=== PATIENT | female | born 1985 | race Caucasian/White ===

== ENCOUNTER 2021-04-19 18:50 | Emergency (ER) | payer MEDICAID ==
[~2021-04-19] VITALS: Ht 157.5 cm; Wt 73.9 kg
[~2021-04-19 18:50] MED LIST: FERR-15 PO; IBUP-1842 PO
[2021-04-19 19:03] VITALS: BP 134/75
--- NOTE | 2021-04-19 19:13 | NUR ---
Pt ambulated to bed 07
--- NOTE | 2021-04-19 19:25 | NUR ---
KASIE BO AT BEDSIDE FOR MEDICAL EXAMINATION
[2021-04-19] MEDS ORDERED: NACL 0.9% 1,000 ML IV SCH (19:30)
[2021-04-19] MEDS ORDERED: ONDANSETRON 4 MG/2 ML VIAL IVP ONE (19:30)
[2021-04-19] MEDS ORDERED: KETOROLAC 30 MG/ML VIAL IVP ONE (19:30)
--- NOTE | 2021-04-19 19:30 | NUR ---
36 Y/O FEMALE THAT CAME INTO ED WITH C/O LOWER BACK PAIN, LLQ ABDOMINAL PAIN, PAINFUL URINATION X 3 DAYS. UPON ARRIVAL, PT. ASKED FOR EMESIS BAG. +NAUSEA , RATES PAIN AT 8/10 ON THE PAIN SCALE AT THIS TIME. SKIN IS PINK/WARM/DRY; AAOX4 WITH EVEN AND STEADY GAIT; HR EVEN AND REGULAR; PT DENIES ANY FEVER, CP, SOB, OR COUGH AT THIS TIME; VSS; PATIENT POSITIONED FOR COMFORT; HOB ELEVATED; BEDRAILS UP X2; BED DOWN. ER MD MADE AWARE OF PT STATUS. PMH: DENIES ALLERGIES: NKA
--- NOTE | 2021-04-19 20:15 | NUR ---
LABS DRAWN AND GIVEN TO ABRAHAM FROM LAB
[2021-04-19 20:35] LABS: BASOPHILS % (AUTO) 0.4 % (0.0-2.0); EOSINOPHILS % (AUTO) 0.4 % (0.0-4.0); HEMATOCRIT 35.2 % (36-48); HEMOGLOBIN 11.4 g/dL (12.0-16.0); LYMPHOCYTES # (AUTO) 1.7 K/uL (2.5-16.5); LYMPHOCYTES % (AUTO) 13.9 % (20.5-51.1); MEAN CORPUSCULAR HEMOGLOBIN 26 pg (27-31); MEAN CORPUSCULAR HGB CONC 32 g/dL (33-37); MEAN CORPUSCULAR VOLUME 81.1 fL (80-94); MONOCYTES # (AUTO) 0.6 K/uL (0.8-1.0); MONOCYTES % (AUTO) 5.3 % (1.7-9.3); NEUTROPHILS # (AUTO) 9.6 K/uL (1.8-7.7); PLATELET COUNT (AUTO) 320 K/uL (140-450); RED BLOOD CELL COUNT(AUTO) 4.34 MIL/uL (4.20-5.40); RED CELL DISTRIBUTION WIDTH 15.5 % (11.6-13.7); WHITE BLOOD COUNT (AUTO) 12.1 K/uL (4.8-10.8)
[2021-04-19 20:50] LABS: APPEARANCE,URINE CLEAR (CLEAR); BILIRUBIN,URINE NEGATIVE (NEGATIVE); BLOOD, URINE 3+ (NEGATIVE); COLOR,URINE YELLOW (YELLOW); LEUKOCYTE ESTERASE ,URINE NEGATIVE (NEGATIVE); NITRITE, URINE NEGATIVE (NEGATIVE); PH,URINE 7.5 (5.0-9.0); UGLUCOSE NEGATIVE (NEGATIVE)
[2021-04-19 20:53] LABS: ALBUMIN 3.8 g/dL (3.4-5.0); ANION GAP 13.7 (8-16); CREATININE 0.8 mg/dL (0.6-1.3); POTASSIUM 3.7 mmol/L (3.5-5.1); TOTAL BILIRUBIN 0.3 mg/dL (0.0-1.0)
[2021-04-19 21:00] LABS: RBC,URINE TOO NUMEROUS TO COUN /HPF (0-5); WBC,URINE 0-5 /HPF (0-5)
[2021-04-19] MEDS ORDERED: IBUP-2213 PO (21:28)
[2021-04-19] MEDS ORDERED: TAMS0.4C96 PO (21:28)
[2021-04-19] MEDS ORDERED: ACET-8386 PO (21:28)
[2021-04-19 21:40] VITALS: BP 134/75
--- NOTE | 2021-04-19 21:40 | NUR ---
Patient discharged with v/s stable. Written and verbal after care instructions given and explained. Patient alert, oriented and verbalized understanding of instructions. Ambulatory with steady gait. All questions addressed prior to discharge. ID band removed. Patient advised to follow up with PMD. Rx of FLOMAX, IBUPROFEN, AND NORCO 5-325 given. Patient educated on indication of medication including possible reaction and side effects. Opportunity to ask questions provided and answered.
== END 2021-04-19 21:40 | disposition home or self-care (01) ==
LOC: MED 18:50
DX: N20.0 Calculus of kidney (principal); Z87.442 Personal history of urinary calculi; Z98.890 Other specified postprocedural states; Z79.899 Other long term (current) drug therapy
CPT/HCPCS: 36415; 74176; 80053; 81001; 81025; 83690; 85025; 96361; 96374; 96375; 99284; J1885; J2405; J7030